=== PATIENT | male | born 1995 | race Caucasian/White ===

== ENCOUNTER 2016-11-26 20:52 | Emergency (ER) | payer MEDICAID ==
[2016-11-26 20:58] VITALS: RESP 16; TEMP 98.1
[2016-11-26] MEDS ORDERED: IBUPROFEN 600 MG TAB PO ONE (21:00)
--- NOTE | 2016-11-26 21:46 | EDPHY ---
H & P Time Seen by Provider: 11/26/16 21:43 HPI/ROS: HPI: This is a 21-year-old male who presents with Chief Complaint: Left ankle injury Location: Left lateral midfoot/ankle Quality: Injury Duration: 30 minutes prior to arrival Signs and Symptoms: Positive swelling, positive pain, no radiation, no weakness , no numbness Timing: Acute Severity: Moderate Context: Patient was skateboarding and inverted his ankle accidentally. He did not hit his head or lose consciousness. Patient has a prior history of what seems like a fibular fracture status post hardware placement of 7 pins per patient. Patient notes increased pain with ambulation. Modifying Factors: Ice applied Comment: ROS: Eyes: No blurred vision Respiratory: No shortness of breath, no cough Cardiovascular: No chest pain Gastrointestinal: No nausea, no vomiting no diarrhea Genitourinary: No dysuria Extremities: No myalgias Neurologic: No weakness, no numbness Skin: No rashes Hematologic: No bruising, no bleeding MEDICAL/SURGICAL HISTORY: Generally healthy. Does not take any medications regularly. Social History: employed. Student. Smoking Status: Former smoker Physical Exam: CONSTITUTIONAL: Young adult white male, polite and cooperative, awake and alert , no obvious distress HEENT: Atraumatic and normocephalic, PERRL, EOMI. Tympanic membranes clear. . Oropharynx clear, no exudate and moist pink mucosa. Airway patent. No lymphadenopathy. No meningismus. Cardiovascular: Normal S1/S2, regular rate, regular rhythm, without murmur rub or gallop. PULMONARY/CHEST: Symmetrical and nontender. Clear to auscultation bilaterally Good air movement. No accessory muscle usage. ABDOMEN: Soft, nondistended, nontender, no rebound, no guarding, no peritoneal signs, no masses or organomegaly. No CVAT. EXTREMITIES: 2/2 pulses, left ankle shows remote well-healed vertical incision over the fibula consistent with story. Left lateral mid foot shows mild swelling and tenderness to palpation over the 5th through 3rd metatarsals. Left ankle has relatively good range of motion. Achilles tendon intact. Plantar flexion and dorsiflexion intact. no clubbing, no cyanosis or edema. NEUROLOGICAL: no focal neuro deficits. GCS 15. Touch sensation intact SKIN: Warm and dry, no erythema. no rash. Good capillary refill. Constitutional: Initial Vital Signs Temperature (C) 36.7 C 08/25/17 20:56 Heart Rate 89 11/26/16 20:56 Respiratory Rate 16 11/26/16 20:56 Blood Pressure 126/62 H 11/26/16 20:56 O2 Sat (%) 95 11/26/16 20:56 O2 Delivery Mode Room Air Allergies/Adverse Reactions: No Known Allergies Allergy (Unverified 11/26/16 20:56) Home Medications: Medication Instructions Recorded Hydrocodone/APAP 5/325 [[place] 1 - 2 tab PO Q4H PRN #12 tab 11/26/16 5/325 (*)] Medical Decision Making - Diagnostics Imaging Results: Imaging Impressions Ankle X-Ray 11/26/16 20:58 Impression: Mildly displaced avulsion fracture of the cuboid. Foot X-Ray 11/26/16 21:30 Impression: Mildly displaced avulsion fracture of the cuboid. ED Course/Re-evaluation: Left foot x-ray, left ankle x-ray, oral medication given No signs of neurovascular compromise Placed in short leg posterior leg splint Advised crutches and nonweightbearing status until orthopedic follow-up Differential Diagnosis: Differential diagnosis includes fracture, dislocation, nerve injury, tendon injury, sprain, contusion. - Data Points Medications Given: Discontinued Medications Ibuprofen (Motrin) 600 mg PO EDNOW ONE Stop: 11/26/16 21:01 Last Admin: 11/26/16 21:02 Dose: 600 mg Departure - Departure Disposition: Home, Routine, Self-Care Clinical Impression: Closed left cuboid fracture Qualifiers: Encounter type: initial encounter Fracture alignment: nondisplaced Qualified Code(s): S92.215A - Nondisplaced fracture of cuboid bone of left foot, initial encounter for closed fracture Condition: Good Instructions: Foot Fracture in Adults (ED) Additional Instructions: Please remain in short-leg posterior splint and and use crutches to remain nonweightbearing until orthopedic follow-up. Referrals: NONE *PRIMARY CARE P,. [Primary Care Provider] - As per Instructions Frannie Posadas MD [Medical Doctor] - 5-7 days, call for appt. Prescriptions: Hydrocodone/APAP 5/325 [[place] 5/325 (*)] 1 - 2 tab PO Q4H PRN #12 tab PRN Reason: Pain, Moderate
[2016-11-26 22:43] VITALS: BP 126/74; PULSE 74; O2SAT 94
== END 2016-11-26 22:43 | disposition home or self-care (01) ==
DX: S92.215A Nondisplaced fracture of cuboid bone of left foot, initial encounter for closed fracture (principal); Z87.891 Personal history of nicotine dependence; V00.131A Fall from skateboard, initial encounter; Y99.8 Other external cause status; Y93.51 Activity, roller skating (inline) and skateboarding

== ENCOUNTER 2017-02-19 16:14 | Emergency (ER) | payer MEDICAID ==
[2017-02-19 16:20] VITALS: RESP 16; TEMP 98.2; O2SAT 95
--- NOTE | 2017-02-19 16:48 | EDPHY ---
H & P Time Seen by Provider: 02/19/17 16:28 HPI/ROS: CHIEF COMPLAINT: Fall, right hip pain HISTORY OF PRESENT ILLNESS: Patient is a 21-year-old male who presents to the emergency department after injuring his right hip. Patient states that he felt the skate park 1 week ago on his right hip. He was able to continue skating during the week. Today he again fell twice onto his right hip. He walked to his car. When he sat down he developed significant right hip pain. He has no numbness or tingling. No other injuries. He denies striking his head. REVIEW OF SYSTEMS: My complete review of systems is negative except as mentioned in the HPI. Past Medical/Surgical History: Anxiety Past surgical history: Ankle surgery Social history: The patient denies alcohol today. Smoking Status: Former smoker Physical Exam: Vitals noted. General Appearance: Alert and no distress. Head: Pupils equal. Normal. Respiratory: No respiratory distress. Cardiac: regular rate and rhythm. Extremities: the patient has old bruising over his right hip. There is a small palpable hematoma. No tense compartment. Neurovascularly intact distally. Patient's distal femur and knee are nontender with no trauma. Patient has abrasions on both elbows. These are nontender. Skin: No rashes or lesions. Neuro: Alert. Normal mood and affect. Constitutional: Initial Vital Signs Temperature (C) 36.8 C 02/19/17 16:17 Heart Rate 82 02/19/17 16:17 Respiratory Rate 16 02/19/17 16:17 Blood Pressure 114/67 02/19/17 16:17 O2 Sat (%) 95 02/19/17 16:17 O2 Delivery Mode Room Air Allergies/Adverse Reactions: No Known Allergies Allergy (Verified 02/19/17 16:17) Home Medications: Medication Instructions Recorded Prozac 10 MG (*) 02/19/17 Medical Decision Making - Diagnostics Imaging Results: Imaging Impressions Hip X-Ray 02/19/17 16:45 Impression: No fracture. ED Course/Re-evaluation: In the emergency department I discussed possible etiologies with the patient. I answered all his questions. An x-ray of his right hip was ordered. Right hip x-ray: Please refer the dictated report. No acute disease I discussed the result with the patient. I answered all his questions. He is given ice in the emergency department. He will follow up with Orthopedics if he continues to have problems. He is given warnings prior to leaving. Differential Diagnosis: My differential includes but is not limited to fracture, dislocation, contusion , sprain, compartment syndrome Departure - Departure Disposition: Home, Routine, Self-Care Clinical Impression: Contusion, hip Qualifiers: Encounter type: initial encounter Laterality: right Qualified Code(s): S70.01XA - Contusion of right hip, initial encounter Condition: Good Instructions: Hip Contusion (ED) Additional Instructions: Your x-ray was negative. Avoid re-injury to that hip. Apply ice for the next 2 days. Referrals: Alexis Leon MD [Medical Doctor] - 5-7 days, if not improved
[2017-02-19 18:14] VITALS: BP 115/59; PULSE 81
== END 2017-02-19 18:13 | disposition home or self-care (01) ==
DX: S70.01XA Contusion of right hip, initial encounter (principal); Z87.891 Personal history of nicotine dependence; W19.XXXA Unspecified fall, initial encounter; Y92.39 Other specified sports and athletic area as the place of occurrence of the external cause